=== PATIENT | male | born 1945 | race Caucasian/White ===

== ENCOUNTER 2019-09-30 14:09 | Outpatient (CLI) | payer MEDICARE, SELFPAY ==
[2019-09-30 14:26] LABS: Absolute Basophil Count 0.04 k/cumm (0.0-0.2); Absolute Eosinophil Count 0.46 k/cumm (0.0-0.7); Absolute Lymphocyte Count 2.46 k/cumm (1.2-3.4); Absolute Monocyte Count 0.93 k/cumm (0.11-0.7); Basophils % 0.6; Eosinophils % 6.5; HCT 36.1 % (40.0-50.0); Lymphocytes % 34.7; Mean Corp. HGB Concentration 33.2 g/dL (32.0-36.0); Mean Corpuscular Hemoglobin 31.8 pg (27.0-33.0); Mean Corpuscular Volume 95.8 fL (80-95); Mean Platelet Volume 10.6 fL (8.0-11.0); Monocytes % 13.1; Neutrophils % 45.1; Platelet Count 302 x1000/uL (130-400); RBC 3.77 m/cumm (4.50-6.00); RBC Distribution Width 13.5 % (11.8-14.1); White Blood Cell Count 7.09 k/cumm (4.4-10.8)
[2019-09-30 15:02] LABS: ESR 52 mm/hr (1-20)
[2019-09-30 16:15] LABS: ALT 24 U/L (16-63); AST 20 U/L (15-37); Albumin 3.4 g/dL (3.4-5.0); Alkaline Phosphatase 33 U/L (46-116); Anion Gap 5.2 mmol/L (3-11); BUN 24 mg/dL (7-18); Bilirubin, Total 0.3 mg/dL (0.2-1.0); CO2 29.8 mmol/L (21.0-32.0); CREATININE 1.44 mg/dL (0.70-1.30); Chloride 105 mmol/L (98-107); Estimated GFR 48.22 (mL/min/1.73m2); Glucose 120 mg/dL (74-106); Potassium 4.4 mmol/L (3.5-5.1); Sodium 140 mmol/L (136-145); Total Protein 6.9 g/dL (6.4-8.2)
== END 2019-09-30 14:29 ==
PROVIDERS: Visit Provider Internal Medicine Rheumatology
DX: M06.9 Rheumatoid arthritis, unspecified (principal); Z79.899 Other long term (current) drug therapy
CPT/HCPCS: 36415; 80053; 85652; 85025; 86140

== ENCOUNTER 2020-01-25 03:26 | Outpatient (RCR) | payer MEDICARE, SELFPAY ==
[2020-01-25] VITALS (7 sets, daily range): BP systolic 126–144; BP diastolic 79–87; PULSE 59–72; RESP 17–18; TEMP 36.3–36.6; O2SAT 96–97
[2020-01-25] MEDS: Normal Saline Flush 10 ML SYR IVP (10:29)
[2020-01-25] MEDS: inFLIXimab 300 MG in Normal Saline 250 ML 125 MG IVPB (10:29)
== END 2020-01-26 23:59 | disposition home or self-care (01) ==
LOC: INF 03:26
PROVIDERS: Visit Provider Internal Medicine
DX: M05.89 Other rheumatoid arthritis with rheumatoid factor of multiple sites (principal)
CPT/HCPCS: 96365; 96366; 96413; 96415; J1745

== ENCOUNTER 2020-09-09 03:48 | Outpatient (RCR) | payer MEDICARE, SELFPAY ==
[2020-09-09] VITALS (7 sets, daily range): BP systolic 121–154; BP diastolic 69–84; PULSE 60–75; RESP 17–19; TEMP 36.4–36.7; O2SAT 97–98
[2020-09-09] MEDS: Normal Saline Flush 10 ML SYR IVP (09:00)
== END 2020-09-26 23:59 | disposition home or self-care (01) ==
LOC: INF 03:48
PROVIDERS: PCP Internal Medicine; Visit Provider Internal Medicine
DX: M05.89 Other rheumatoid arthritis with rheumatoid factor of multiple sites (principal)
CPT/HCPCS: 96365; 96366; 96413; 96415

== ENCOUNTER 2020-10-07 04:48 | Outpatient (CLI) | payer MEDICARE, SELFPAY ==
[2020-10-07 08:50] LABS: Abs Immature Grans 0.01 10^3/uL (0.0-0.06); Absolute Basophil Count 0.05 10^3/uL (0.0-0.2); Absolute Eosinophil Count 0.48 10^3/uL (0.0-0.7); Absolute Lymphocyte Count 1.96 10^3/uL (1.2-3.4); Absolute Monocyte Count 0.87 10^3/uL (0.1-0.8); Absolute Neutrophil Count 2.94 10^3/uL (1.2-6.7); Basophils % 0.8; Eosinophils % 7.6; HCT 35.2 % (40.0-50.0); HGB 11.6 g/dL (13.5-17.5); Immature Grans % 0.2; Lymphocytes % 31.1; MCH 31.5 pg (27.0-33.0); MCV 95.7 fL (80-95); MPV 10.7 fL (8.0-11.0); Monocytes % 13.8; Neutrophils % 46.5; Nucleated RBC 0 %; Platelet Count 248 10^3/uL (130-400); RBC 3.68 10^6/uL (4.36-5.78); RDW 13.5 % (11.8-14.1); WBC 6.31 10^3/uL (4.4-10.8)
[2020-10-07 09:39] LABS: ALT 20 U/L (16-63); AST 17 U/L (15-37); Albumin 3.4 g/dL (3.4-5.0); Alkaline Phosphatase 33 U/L (46-116); Anion Gap 6.7 mmol/L (3-11); BUN 27 mg/dL (7-18); Bilirubin, Total 0.4 mg/dL (0.2-1.0); C-Reactive Protein 0.09 mg/dL (0.0-0.3); CO2 27.3 mmol/L (21.0-32.0); Calcium 8.7 mg/dL (8.5-10.1); Chloride 106 mmol/L (98-107); Estimated GFR 42.58 (mL/min/1.73m2); Glucose 91 mg/dL (74-106); Potassium 3.8 mmol/L (3.5-5.1); Sodium 140 mmol/L (136-145); Total Protein 6.7 g/dL (6.4-8.2)
[2020-10-07 09:52] LABS: ESR 43 mm/hr (1-20)
== END 2020-10-07 05:08 ==
PROVIDERS: PCP Internal Medicine; Visit Provider Internal Medicine Rheumatology
DX: M05.89 Other rheumatoid arthritis with rheumatoid factor of multiple sites (principal); Z79.899 Other long term (current) drug therapy
CPT/HCPCS: 36415; 80053; 85652; 85025; 86140

== ENCOUNTER 2020-11-04 05:17 | Outpatient (RCR) | payer MEDICARE, SELFPAY ==
[2020-09-27 00:11] VITALS: BP 132/72; PULSE 63; RESP 17; TEMP 36.7
[2020-11-04] VITALS (7 sets, daily range): BP systolic 114–144; BP diastolic 67–82; PULSE 57–68; RESP 18–19; TEMP 36–36.3; O2SAT 95–98
[2020-11-04] MEDS: Normal Saline Flush 10 ML SYR IVP ×2 (08:34→09:00)
== END 2020-11-27 23:59 | disposition home or self-care (01) ==
LOC: INF 05:17
PROVIDERS: PCP Internal Medicine; Visit Provider Internal Medicine
DX: M05.89 Other rheumatoid arthritis with rheumatoid factor of multiple sites (principal)
CPT/HCPCS: 96365; 96366; J1745

== ENCOUNTER 2021-08-14 09:07 | Emergency (ER) | payer MEDICARE, SELFPAY ==
[2021-08-14 09:14] VITALS: BP 153/76; PULSE 67; RESP 16; TEMP 36.6; O2SAT 98
--- NOTE | 2021-08-14 09:23 | ED.GENADUL_ITS ---
Discharge Plan Disposition Patient Disposition: HOME Condition: Good Discharge Details Clinical Impression: Tick bite Primary Care Provider: Eli Brown ED Provider: Florina Aden Home Meds and New Rx's Prescriptions: Continued folic acid 0.4 MG tablet 1 tab PO DAILY RF: 0 methotrexate sodium 2.5 MG tablet 1 tab PO DIRECTED RF: 0 Remicade 100 MG recon soln 1 mg IV DIRECTED RF: 0 codeine-guaifenesin [Cheratussin AC] 5 ML liquid 10 ml PO Q6H PRN PRNQty: 120 RF: 0 albuterol sulfate 8.5 GM HFA aerosol inhaler 2 puff Inhalation PRN PRNQty: 1 RF: 0 Discharge Instructions Instructions: Tick Bite (ED) Medical Decision Making Patient appears well Injected with lidocaine with epinephrine, drained, irrigated copiously, iodoform placed, has a prescription for doxycycline which she will take Blood sugar was 176 prior to arrival on labs that he had drawn He is afebrile and nontoxic Recheck in 24 to 48 hours recommended Early return precautions discussed patient expressed understanding, no evidence of sepsis Medical Records Medical records reviewed: Yes I reviewed the patient's medical records. Lab Data Lab results reviewed: Yes I reviewed the patient's lab results. HPI General Mode of arrival: ambulatory . Date/Time Provider Initiated Documentation: 08/14/21 09:19 . Limitations to Documentation: no limitations . Information obtained by: patient . HPI Narrative: This 75-year-old gentleman presents status post tick bite. He is unsure as to how long the tick was attached. Unsure if the tick was engorged. Removed the tick last evening. Not slight redness around the spot. He denies any additional complaints at this time. Denies chest pain, shortness of breath, dizziness, weakness. Related Data Home Medications Medication Instructions Recorded Confirmed Remicade 1 mg IV DIRECTED 02/09/15 08/14/21 codeine-guaifenesin [Cheratussin 10 ml PO Q6H PRN PRN #120 ml 02/09/15 AC] folic acid 1 tab PO DAILY 02/09/15 08/14/21 methotrexate sodium 1 tab PO DIRECTED 02/09/15 08/14/21 albuterol sulfate 2 puff INHALATION PRN PRN #1 02/11/15 08/14/21 [email or web address] Previous Rx's Medication Instructions Recorded codeine-guaifenesin [Cheratussin 10 ml PO Q6H PRN PRN #120 ml 02/09/15 AC] albuterol sulfate 2 puff INHALATION PRN PRN #1 02/11/15 [email or web address] Allergies Allergy/AdvReac Type Severity Reaction Status Date / Time No Known Allergies Allergy Unverified 08/14/21 09:18 General Stated Complaint: RashLesion LOVE: 4 Review of Systems All systems reviewed & are unremarkable except as noted in HPI and below PFSH Social History Smoking/Tobacco Use Status: Former Tobacco Use Smoking risk assessment performed?: Yes Drug use: Never Do you feel safe at home: Yes Do you feel safe in your relationship?: Yes Exam Const General: cooperative, comfortable and no acute distress Eyes Pupils: PERRL Resp Effort & Inspection: normal respiratory effort Cardio Rate: regular rate Skin Full body images: 2 1. Abscess noted Neuro General: patient alert and patient oriented x3 Course Vital Signs Vital signs: Vital Signs Temperature 36.6 C 08/14/21 09:14 Pulse 67 08/14/21 09:14 Respiratory Rate 16 08/14/21 09:14 Blood Pressure 153/76 H 08/14/21 09:14 Pulse Oximetry 98 08/14/21 09:14 Temperature 36.6 C 08/14/21 09:14 Temperature Source Temporal Artery Scan 08/14/21 09:14 Pulse 67 08/14/21 09:14 Respiratory Rate 16 08/14/21 09:14 Respiratory Effort Non-Labored 08/14/21 09:16 Blood Pressure 153/76 H 08/14/21 09:14 Blood Pressure Position Sitting 08/14/21 09:14 Pulse Oximetry 98 08/14/21 09:14 Oxygen Delivery Method Room Air 08/14/21 09:14 Oxygen Flow Rate 0 08/14/21 09:14 Pain Level 0 08/14/21 09:14 Procedures Abscess I/D Site: Chest Side (if applicable): Left Local Anesthetic: Lidocaine 1% and With Epi Technique: Incised with #11 Blade Amount of fluid expressed (mL): 5 Irrigation: Yes Packing used?: Iodoform Complications: Pain and Bleeding PAWSS Have you Been Recently Intoxicated or Drunk Within the Last 30 days?: No Have you Ever Experienced Previous Episodes of Alcohol Withdrawal?: No Have you ever Experienced Withdrawal Seizures?: No Have you ever Experienced Delirium Tremens(DT)s?: No Have you ever undergone Alcohol Rehabilitation Treatment (i.e, inpt ot outpatient treatment programs)?: No Have you ever Experienced Blackouts?: No Have you ever Combined Alcohol with other Downers within the last 90 days?: No Have you ever Combined Alcohol with any other Substance of Abuse during the last 90 days?: No Positive Blood Alcohol level on Presentation? [PCS.BAL]: No Evidence of Increased Autonomic Activity (i.e. HR>120, tremor, sweating, agitation, nausea)?: No Result: 0
[2021-08-14] MEDS: Doxycycline Hyclate 100 MG CAP 200 MG PO (09:30)
== END 2021-08-14 09:33 | disposition home or self-care (01) ==
PROVIDERS: Emergency Provider Physician Assistant; PCP Internal Medicine
DX: S30.861A Insect bite (nonvenomous) of abdominal wall, initial encounter (principal); L02.213 Cutaneous abscess of chest wall; W57.XXXA Bitten or stung by nonvenomous insect and other nonvenomous arthropods, initial encounter
CPT/HCPCS: 10060

== ENCOUNTER 2021-08-21 00:57 | Outpatient (RCR) | payer MEDICARE, SELFPAY ==
[2021-08-21 08:20] VITALS: BP 129/68; PULSE 72; RESP 17; TEMP 36.8; O2SAT 98
[2021-08-21] MEDS: Normal Saline Flush 10 ML SYR IVP (09:04)
== END 2021-08-27 23:59 | disposition home or self-care (01) ==
LOC: INF 00:57
PROVIDERS: PCP Internal Medicine; Visit Provider Internal Medicine
DX: M05.89 Other rheumatoid arthritis with rheumatoid factor of multiple sites (principal)
CPT/HCPCS: 96365; 96413; J1745

== ENCOUNTER 2021-10-16 08:00 | Outpatient (RCR) | payer MEDICARE, SELFPAY ==
[2021-08-28 00:02] VITALS: BP 129/68; PULSE 72; RESP 17; TEMP 36.8
[2021-10-16] MEDS: Normal Saline Flush 10 ML SYR IVP (08:10)
[2021-10-16 08:21] LABS: HGB 12.4 g/dL (13.5-17.5); MCH 31.6 pg (27.0-33.0); MCHC 32.6 % (32.0-36.0); MCV 96.7 fL (80-95); MPV 10.5 fL (8.0-11.0); Platelet Count 259 10^3/uL (130-400); RBC 3.93 10^6/uL (4.36-5.78); RDW 13.8 % (11.8-14.1); RDW-SD 48.8 fL; WBC 5.31 10^3/uL (4.4-10.8)
[2021-10-16 08:39] LABS: ALT 20 U/L (16-63); AST 16 U/L (15-37); Albumin 3.3 g/dL (3.4-5.0); Alkaline Phosphatase 33 U/L (46-116); Anion Gap 4.4 mmol/L (3-11); BUN 32 mg/dL (7-18); Bilirubin, Total 0.4 mg/dL (0.2-1.0); C-Reactive Protein 0.08 mg/dL (0.0-0.3); CO2 30.6 mmol/L (21.0-32.0); CREATININE 1.5 mg/dL (0.70-1.30); Calcium 8.7 mg/dL (8.5-10.1); Chloride 106 mmol/L (98-107); ESR 14 mm/hr (0-20); Estimated GFR 45.75 (mL/min/1.73m2); Glucose 96 mg/dL (74-106); Potassium 3.8 mmol/L (3.5-5.1); Sodium 141 mmol/L (136-145); Total Protein 7.1 g/dL (6.4-8.2)
[2021-10-16 08:45] VITALS: BP 142/84; PULSE 80; RESP 20; TEMP 36.4; O2SAT 96
[2021-10-16 08:58] VITALS: BP 144/73; PULSE 65; RESP 20; TEMP 36.5; O2SAT 97
[2021-10-16 09:14] VITALS: BP 128/73; PULSE 60; RESP 16; TEMP 36.6; O2SAT 96
[2021-10-16 09:35] VITALS: BP 126/71; PULSE 58; RESP 16; TEMP 36.6; O2SAT 98
[2021-10-16 10:28] VITALS: BP 132/75; PULSE 57; RESP 16; TEMP 36.7; O2SAT 97
== END 2021-10-27 23:59 | disposition home or self-care (01) ==
LOC: INF 08:00
PROVIDERS: Internal Medicine Rheumatology; PCP Internal Medicine; Visit Provider Internal Medicine
DX: M05.89 Other rheumatoid arthritis with rheumatoid factor of multiple sites (principal)
CPT/HCPCS: 36415; 80053; 85027; 85652; 96365; 96366; 86140; J1745

== ENCOUNTER 2022-09-17 02:26 | Outpatient (RCR) | payer MEDICARE, SELFPAY ==
[2022-09-17] MEDS: Normal Saline Flush 10 ML SYR IVP (08:14)
[2022-09-17 08:23] LABS: HCT 37.9 % (40.0-50.0); HGB 12.8 g/dL (13.5-17.5); MCH 31.4 pg (27.0-33.0); MCHC 33.8 % (32.0-36.0); MCV 93 fL (80-95); MPV 10.5 fL (8.0-11.0); Platelet Count 253 10^3/uL (130-400); RBC 4.08 10^6/uL (4.36-5.78); RDW 13.2 % (11.8-14.1); RDW-SD 44.7 fL; WBC 5.64 10^3/uL (4.4-10.8)
[2022-09-17 08:26] LABS: ESR 36 mm/hr (0-20)
[2022-09-17 08:40] VITALS: BP 149/77; PULSE 79; RESP 20; TEMP 36.8; O2SAT 96
[2022-09-17 08:50] LABS: ALT 20 U/L (16-63); AST 18 U/L (15-37); Albumin 3.3 g/dL (3.4-5.0); Alkaline Phosphatase 36 U/L (46-116); Anion Gap 7.8 mmol/L (3-11); BUN 26 mg/dL (7-18); Bilirubin, Total 0.5 mg/dL (0.2-1.0); C-Reactive Protein 0.14 mg/dL (0.0-0.3); CO2 28.2 mmol/L (21.0-32.0); CREATININE 1.6 mg/dL (0.70-1.30); Calcium 8.8 mg/dL (8.5-10.1); Chloride 102 mmol/L (98-107); Estimated GFR 44.65 (mL/min/1.73m2); Glucose 104 mg/dL (74-106); Potassium 3.4 mmol/L (3.5-5.1); Sodium 138 mmol/L (136-145); Total Protein 7.5 g/dL (6.4-8.2)
[2022-09-17 08:56] VITALS: BP 125/65; PULSE 69; RESP 20; TEMP 36.8; O2SAT 96
[2022-09-17 09:11] VITALS: BP 123/72; PULSE 69; RESP 20; TEMP 36.8; O2SAT 95
[2022-09-17 09:26] VITALS: BP 111/67; PULSE 59; RESP 20; TEMP 36.7; O2SAT 94
[2022-09-17 10:02] VITALS: BP 114/75; PULSE 69; RESP 20; TEMP 36.7; O2SAT 96
[2022-09-17 10:33] VITALS: BP 117/71; PULSE 66; RESP 20; TEMP 36.7; O2SAT 94
== END 2022-09-26 23:59 | disposition home or self-care (01) ==
LOC: INF 02:26
PROVIDERS: PCP Internal Medicine; Visit Provider Family Medicine
DX: M05.89 Other rheumatoid arthritis with rheumatoid factor of multiple sites (principal)
CPT/HCPCS: 36415; 80053; 85027; 85652; 96365; 96366; 86140; J1745

== ENCOUNTER 2023-08-29 01:55 | Outpatient (RCR) | payer MEDICARE, SELFPAY ==
[2022-09-27 00:01] VITALS: BP 117/71; PULSE 66; RESP 20; TEMP 36.7
[2023-08-29] MEDS: Normal Saline Flush 10 ML SYR IVP (08:35)
[2023-08-29 08:40] VITALS: BP 154/84; PULSE 72; RESP 18; TEMP 36.3; O2SAT 97
[2023-08-29 10:10] VITALS: BP 154/84; PULSE 65; RESP 18; TEMP 36.4; O2SAT 97
== END 2023-09-26 23:59 | disposition home or self-care (01) ==
LOC: INF 01:55
PROVIDERS: PCP Internal Medicine; Visit Provider Family Medicine
DX: M05.89 Other rheumatoid arthritis with rheumatoid factor of multiple sites (principal)
CPT/HCPCS: 96365; 96366; J1745

== ENCOUNTER 2024-01-01 04:40 | Outpatient (RCR) | payer MEDICARE, SELFPAY ==
[2023-09-27] VITALS: BP 117/71; PULSE 66; RESP 20; TEMP 36.7
[2024-01-01 08:40] VITALS: BP 163/89; PULSE 60; RESP 16; TEMP 36.7; O2SAT 98
[2024-01-01] MEDS: Normal Saline Flush 10 ML SYR IVP (08:55)
[2024-01-01 09:24] LABS: HCT 41.1 % (40.0-50.0); HGB 13.9 g/dL (13.5-17.5); MCH 31.9 pg (27.0-33.0); MCHC 33.8 % (32.0-36.0); MCV 94 fL (80-95); MPV 10.8 fL (8.0-11.0); Platelet Count 315 10^3/uL (130-400); RBC 4.36 10^6/uL (4.36-5.78); RDW-SD 48.2 fL; WBC 5.64 10^3/uL (4.4-10.8)
[2024-01-01 09:33] LABS: ESR 21 mm/hr (0-20)
[2024-01-01 09:51] LABS: ALT 26 U/L (16-63); AST 23 U/L (15-37); Albumin 3.4 g/dL (3.4-5.0); Alkaline Phosphatase 41 U/L (46-116); BUN 27 mg/dL (7-18); Bilirubin, Total 0.6 mg/dL (0.2-1.0); CREATININE 1.5 mg/dL (0.70-1.30); Calcium 9.1 mg/dL (8.5-10.1); Chloride 102 mmol/L (98-107); Estimated GFR 47.65 (mL/min/1.73m2); Glucose 95 mg/dL (74-106); Potassium 3.8 mmol/L (3.5-5.1); Sodium 138 mmol/L (136-145); Total Protein 7.9 g/dL (6.4-8.2)
[2024-01-01 09:52] LABS: C-Reactive Protein < 0.50 mg/dL (<or=0.5)
[2024-01-01 10:08] VITALS: BP 149/79; PULSE 43; RESP 16; TEMP 37.2; O2SAT 95
== END 2024-01-26 23:59 | disposition home or self-care (01) ==
LOC: INF 04:40
PROVIDERS: Internal Medicine Rheumatology; PCP Internal Medicine; Visit Provider Family Medicine
DX: M05.89 Other rheumatoid arthritis with rheumatoid factor of multiple sites (principal)
CPT/HCPCS: 36415; 80053; 85027; 85652; 96365; 86140; Q5104

== ENCOUNTER 2024-08-11 01:58 | Outpatient (RCR) | payer MEDICARE, SELFPAY ==
[2024-08-11 10:20] VITALS: BP 138/77; PULSE 66; RESP 17; TEMP 36.7; O2SAT 95
[2024-08-11] MEDS: Normal Saline Flush 10 ML SYR IVP (10:23)
[2024-08-11 10:35] VITALS: BP 141/82; PULSE 66; RESP 16; TEMP 36.6; O2SAT 98
[2024-08-11 10:50] VITALS: BP 144/74; PULSE 60; RESP 17; TEMP 36.5; O2SAT 98
[2024-08-11 11:05] VITALS: BP 135/77; PULSE 61; RESP 17; TEMP 36.5; O2SAT 98
[2024-08-11 11:17] VITALS: BP 143/78; PULSE 61; RESP 16; TEMP 37.5; O2SAT 97
== END 2024-08-27 23:59 | disposition home or self-care (01) ==
LOC: INF 01:58
PROVIDERS: Visit Provider Nurse Practitioner Acute Care
DX: M05.89 Other rheumatoid arthritis with rheumatoid factor of multiple sites (principal)
CPT/HCPCS: 96365; Q5104

== ENCOUNTER 2025-02-02 01:37 | Outpatient (RCR) | payer MEDICARE, SELFPAY ==
[2025-02-02 08:36] LABS: HCT 38.9 % (40.0-50.0); HGB 12.8 g/dL (13.5-17.5); MCH 32.1 pg (27.0-33.0); MCHC 32.9 % (32.0-36.0); MCV 98 fL (80-95); MPV 10.6 fL (8.0-11.0); Platelet Count 222 10^3/uL (130-400); RBC 3.99 10^6/uL (4.36-5.78); RDW 14.1 % (11.8-14.1); RDW-SD 50.3 fL; WBC 6.03 10^3/uL (4.4-10.8)
[2025-02-02 08:38] LABS: ESR 11 mm/hr (0-20)
[2025-02-02] MEDS: Normal Saline Flush 5 ML SYR IVP (08:40)
[2025-02-02 08:55] LABS: ALT 23 U/L (16-63); AST 19 U/L (15-37); Albumin 3.5 g/dL (3.4-5.0); Alkaline Phosphatase 40 U/L (46-116); BUN 26 mg/dL (7-18); Bilirubin, Total 0.7 mg/dL (0.2-1.0); C-Reactive Protein < 0.50 mg/dL (<or=0.5); CREATININE 1.5 mg/dL (0.70-1.30); Chloride 105 mmol/L (98-107); Estimated GFR 47.36 (mL/min/1.73m2); Glucose 86 mg/dL (74-106); Potassium 3.7 mmol/L (3.5-5.1); Sodium 142 mmol/L (136-145); Total Protein 7.3 g/dL (6.4-8.2)
== END 2025-02-24 23:59 | disposition home or self-care (01) ==
LOC: INF 01:37
PROVIDERS: Internal Medicine Rheumatology; Visit Provider Nurse Practitioner Acute Care
DX: M05.89 Other rheumatoid arthritis with rheumatoid factor of multiple sites (principal)
CPT/HCPCS: 36415; 80053; 85027; 85652; 96365; 86140; Q5104

== ENCOUNTER 2025-07-22 00:47 | Outpatient (RCR) | payer MEDICARE, SELFPAY ==
[2025-07-22] MEDS: NORMAL SALINE IVPB (08:46)
[2025-07-22] MEDS: Normal Saline Flush 10 ML SYR IVP (08:46)
[2025-07-22] MEDS: INFLIXIMAB ABDA IVPB (08:46)
[2025-07-22 08:50] VITALS: BP 167/91; PULSE 72; RESP 18; TEMP 36.5; O2SAT 95
[2025-07-22 09:20] VITALS: BP 145/72; PULSE 72; RESP 17; TEMP 36.1; O2SAT 98
[2025-07-22 10:25] VITALS: BP 154/75; PULSE 66; RESP 17; TEMP 36.6; O2SAT 98
== END 2025-07-27 23:59 | disposition home or self-care (01) ==
LOC: INF 00:47
PROVIDERS: Visit Provider Nurse Practitioner Acute Care
DX: M05.89 Other rheumatoid arthritis with rheumatoid factor of multiple sites (principal)
CPT/HCPCS: 96365; 96366; Q5104

== ENCOUNTER 2025-09-15 03:20 | Outpatient (RCR) | payer MEDICARE, SELFPAY ==
[2025-09-15] MEDS: INFLIXIMAB ABDA IVPB (08:23)
[2025-09-15] MEDS: Normal Saline Flush 10 ML SYR IVP (08:23)
[2025-09-15] MEDS: NORMAL SALINE IVPB (08:23)
[2025-09-15 08:28] VITALS: BP 151/81; PULSE 56; RESP 18; TEMP 37; O2SAT 94
[2025-09-15 08:45] VITALS: BP 148/82; PULSE 57; RESP 18; TEMP 37; O2SAT 96
[2025-09-15 09:23] LABS: HCT 36.4 % (40.0-50.0); HGB 12.4 g/dL (13.5-17.5); MCH 32.0 pg (27.0-33.0); MCHC 34.1 % (32.0-36.0); MCV 94 fL (80-95); MPV 10.8 fL (8.0-11.0); Platelet Count 268 10^3/uL (130-400); RBC 3.88 10^6/uL (4.36-5.78); RDW 13.8 % (11.8-14.1); RDW-SD 46.4 fL; WBC 6.75 10^3/uL (4.4-10.8)
[2025-09-15 09:27] LABS: ESR 22 mm/hr (0-20)
[2025-09-15 10:43] LABS: ALT 17 U/L (10-49); AST 21 U/L (<34); Albumin 3.5 g/dL (3.4-5.0); Alkaline Phosphatase 37 U/L (46-116); BUN 26 mg/dL (9-23); Bilirubin, Total 0.80 mg/dL (0.2-1.2); CO2 27.7 mmol/L (20.0-31.0); Calcium 8.4 mg/dL (8.3-10.6); Chloride 106 mmol/L (98-107); Glucose 77 mg/dL (74-106); Potassium 3.8 mmol/L (3.5-5.1); Sodium 141 mmol/L (136-145); Total Protein 6.4 g/dL (5.7-8.2)
[2025-09-15 10:44] LABS: C-Reactive Protein < 0.50 mg/dL (<=0.50)
[2025-09-15 11:37] LABS: Anion Gap 7 mmol/L (3-11)
[2025-09-15 15:13] LABS: Vitamin B12 762 pg/mL (211-911)
[2025-09-15 15:14] LABS: Folate 22.4 ng/mL (>5.38)
== END 2025-09-26 23:59 | disposition home or self-care (01) ==
LOC: INF 03:20
PROVIDERS: Internal Medicine Rheumatology; Visit Provider Nurse Practitioner Acute Care
DX: M05.89 Other rheumatoid arthritis with rheumatoid factor of multiple sites (principal)
CPT/HCPCS: 36415; 80053; 85027; 85652; 96365; 82607; 82746; 86140; Q5104